=== PATIENT | male | born 1995 | race Caucasian/White ===

== ENCOUNTER 2016-07-10 16:52 | Emergency (ER) | payer OTHER ==
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
[2016-07-10 17:08] VITALS: BP 115/74; PULSE 125; TEMP 97; BMI 31.0
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
[2016-07-10] MEDS ORDERED: TETANUS AND DIPHTHERIA TOXOID 0.5 ML DISP.SYRIN IM ONE (17:50)
[2016-07-10 19:04] LABS: HIV 1 & 2 AB NEGATIVE; HIV 1 AGp24 NEGATIVE
[2016-07-12 06:06] LABS: HEP B SURFACE AB Non Reactive (.)
== END 2016-07-10 20:01 | disposition left against medical advice (07) ==
LOC: JER 16:52 → JERFT 16:52
PROC: 3E0234Z Introduction of Serum, Toxoid and Vaccine into Muscle, Percutaneous Approach (ICD-10-PCS; principal; 2016-07-10)
DX: Z77.21 Contact with and (suspected) exposure to potentially hazardous body fluids (principal); W50.3XXA Accidental bite by another person, initial encounter; Y93.9 Activity, unspecified; Y92.159 Unspecified place in reform school as the place of occurrence of the external cause
CPT/HCPCS: 36415; 86704; 86706; 86708; 87340; 87389; 99281-25

== ENCOUNTER 2016-08-19 19:24 | Emergency (ER) | payer OTHER ==
[2016-08-19 19:43] VITALS: BP 118/63; PULSE 117; BMI 31.2
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
[2016-08-19 21:50] LABS: HIV 1 & 2 AB NEGATIVE; HIV 1 AGp24 NEGATIVE
== END 2016-08-19 21:54 | disposition home or self-care (01) ==
LOC: JERFT 19:24
DX: Z11.4 Encounter for screening for human immunodeficiency virus [HIV] (principal)
CPT/HCPCS: 36415; 80074; 87389; 99281-25